=== PATIENT | male | born 1960 | race African-American/Black ===

== ENCOUNTER 2017-07-28 05:48 | Inpatient (IN) | payer OTHER ==
[2017-07-15 13:08] LABS: BASOPHILS % (AUTO) 1.4 % (0.0-2.0); EOSINOPHILS % (AUTO) 4.4 % (0.0-3.0); HEMATOCRIT 41.4 % (42.0-52.0); HEMOGLOBIN 13.9 G/DL (14.2-18.0); LYMPHOCYTES % (AUTO) 41.7 % (20.0-45.0); MEAN CORPUSCULAR VOLUME 84 FL (80-99); NEUTROPHILS % (AUTO) 44.4 % (45.0-75.0); PLATELET COUNT 306 K/UL (150-450); RED CELL DISTRIBUTION WIDTH 12.6 % (11.6-14.8); WHITE BLOOD COUNT 8.5 K/UL (4.8-10.8)
[2017-07-15 13:17] LABS: ALANINE AMINOTRANSFERASE 35 U/L (12-78); ALBUMIN 4.6 G/DL (3.4-5.0); ALBUMIN/GLOBULIN RATIO 1.2 (1.0-2.7); ALKALINE PHOSPHATASE 74 U/L (46-116); ANION GAP 7 mmol/L (5-15); ASPARTATE AMINO TRANSFERASE 29 U/L (15-37); BILIRUBIN,TOTAL 0.4 MG/DL (0.2-1.0); BLOOD UREA NITROGEN 10 mg/dL (7-18); CALCIUM 9.9 MG/DL (8.5-10.1); CARBON DIOXIDE 30 MMOL/L (21-32); CHLORIDE 103 MMOL/L (98-107); PHOSPHORUS 3.3 MG/DL (2.5-4.9); POTASSIUM 3.9 MMOL/L (3.5-5.1); SODIUM 140 MMOL/L (136-145)
--- NOTE | 2017-07-15 13:38 | Diagnostic Imaging Report ---
Indication: Dyspnea Comparison: None 2 views of the chest obtained. Findings: Cardiomediastinal silhouette and pulmonary vascularity are within normal limits for age. The diaphragmatic contour is smooth and costophrenic angles are sharp. No pleural effusions are identified. Vertebral endplate osteophytes noted throughout the thoracic spine. Impression: No acute disease Thoracic spondylosis
[2017-07-15 13:53] LABS: APPEARANCE,URINE CLEAR; BILIRUBIN, URINE NEGATIVE (NEGATIVE); COLOR,URINE PALE YELLOW; GLUCOSE, URINE (UA) NEGATIVE (NEGATIVE); KETONES,URINE NEGATIVE (NEGATIVE); LEUKOCYTE ESTERASE ,URINE NEGATIVE (NEGATIVE); NITRITE,URINE NEGATIVE (NEGATIVE); PH,URINE 6.5 (4.5-8.0); PROTEIN,URINE NEGATIVE (NEGATIVE); UROBILINOGEN,URINE NORMAL MG/DL (0.0-1.0)
[2017-07-28] VITALS (12 sets, daily range): BP systolic 115–142; BP diastolic 58–79
[~2017-07-28] VITALS: Ht 180.3 cm; Wt 133.1 kg
[2017-07-28] MEDS ORDERED: Metoclopramide 10mg/2ml Inj IVP PRN ×2 (06:15→15:00)
[2017-07-28] MEDS ORDERED: Acetaminophen (Non formulary) 100 ML IV ONE (06:15)
[2017-07-28] MEDS ORDERED: Labetalol 5mg/ml 20ml vial IV PRN ×2 (06:15→15:00)
[2017-07-28] MEDS ORDERED: Midazolam 2mg/2ml Inj IVP PRN ×2 (06:15→15:00)
[2017-07-28] MEDS ORDERED: HYDROcodone/Acetamin 7.5/325 tab ORAL PRN ×4 (06:15→17:00)
[2017-07-28] MEDS ORDERED: Norco 5mg/325mg tab ORAL PRN ×3 (06:15→17:00)
[2017-07-28] MEDS ORDERED: LR 1000ml 1,000 ML IVLG SCH (06:15)
[2017-07-28] MEDS ORDERED: DiphenhydrAMINE 50mg/ml Inj IVP PRN ×2 (06:15→15:00)
[2017-07-28] MEDS ORDERED: Atropine Inj 1mg/10ml Syr IV PRN (06:15)
[2017-07-28] MEDS ORDERED: fentaNYL 100 mcg/2 mL IV PRN ×3 (06:15→15:00)
[2017-07-28] MEDS ORDERED: LORazepam Inj 2mg/ml 1ml IV PRN ×2 (06:15→15:00)
[2017-07-28] MEDS ORDERED: Ketorolac 30mg Inj IV PRN ×4 (06:15→15:00)
[2017-07-28] MEDS ORDERED: oxyCODONE HCL/Acetaminophen 5/325mg ORAL PRN ×2 (06:15→15:00)
[2017-07-28] MEDS ORDERED: Zemuron 50mg/5ml Inj IV ONE (06:18)
[2017-07-28] MEDS ORDERED: Sodium Chloride 10ml vial INJ ONE (06:40)
[2017-07-28] MEDS ORDERED: Dexamethasone 4mg/ml vial ONE (06:40)
[2017-07-28] MEDS ORDERED: Lidocaine 1% Plain 30 ml INJ ONE ×5 (06:40→14:09)
[2017-07-28] MEDS ORDERED: LIPITOR20 MG ORAL (06:43)
[2017-07-28] MEDS ORDERED: ASPIR 8181 MG ORAL (06:43)
[2017-07-28] MEDS ORDERED: LISINOPRIL20 MG ORAL (06:43)
[2017-07-28] MEDS ORDERED: fentaNYL 100 mcg/2 mL IV ONE ×3 (06:53→14:19)
[2017-07-28] MEDS ORDERED: NAPROXEN250 M1 PO (06:54)
[2017-07-28] MEDS ORDERED: ceFAZolin sod 2 GM in D5W 110 ML IVP ONE (07:00)
[2017-07-28] MEDS ORDERED: Thrombin 5000 units TOPIC ONE ×3 (07:08→09:02)
[2017-07-28] MEDS ORDERED: Thrombin 5000 units spray kit TOPIC ONE (07:08)
[2017-07-28] MEDS ORDERED: Ropivacaine 5mg/ml Vial 30ml INJ ONE (07:09)
[2017-07-28] MEDS ORDERED: Gelfoam Absorbable 1gm powder pkt TOPIC ONE (07:09)
[2017-07-28] MEDS ORDERED: Lidocaine 1% 10mg/ml/Epi 0.005mg/ml 30ml vial INJ ONE (07:10)
[2017-07-28] MEDS ORDERED: Bacitracin 50000 Units Vial ONE ×2 (07:10→11:57)
--- NOTE | 2017-07-28 07:23 | Anethesia Preoperative Eval ---
Anesthesia Pre-op PMH/ROS General Date of Evaluation: July 28, 2017 Time of Evaluation: 08:09 Anesthesiologist: Kell ASA Score: ASA 3 Mallampati Score Class I : Soft palate, uvula, fauces, pillars visible Class II: Soft palate, uvula, fauces visible Class III: Soft palate, base of uvula visible Class IV: Only hard plate visible Mallampati Classification: Class III Surgeon: Anna Diagnosis: Back Pain Surgical Procedure: ALIF, PLIF L3-S1, Decompression Anesthesia History: none Family History: no anesthesia problems Allergies: Coded Allergies: No Known Allergies (Unverified , 07/27/17) Medications: see eMAR Past Medical History Cardiovascular: Reports: HTN, other - HL Neurologic/Psychiatric: Reports: depression/anxiety Endocrine: Reports: DM Hematology/Immune: Reports: anemia - Mild Other: obesity - BMI 41 PSxH Narrative: Cervical Spine SX Anesthesia Pre-op Phys. Exam Physician Exam Last Vital Signs Date Time Temp Pulse Resp B/P (MAP) Pulse Ox O2 Delivery O2 Flow Rate FiO2 07/28/17 07:14 98.4 78 20 126/68 99 Room Air 98.4 Constitutional: NAD Neurologic: CN 2-12 intact Cardiovascular: RRR Respiratory: CTA Gastrointestinal: S/NT/ND Airway Exam Mallampati Score: Class III MO: full ROM: limited Teeth: intact Anesthesia Pre-op A/P Risk Assessment & Plan Assessment: ASA 3 Plan: GA, BIS, GlideScope Go Status Change Before Surgery: No Pre-Antibiotics Dru Grams Ancef IV Given Within 1 Hr of Incision: Yes Time Given: 08:26 Yony Castorena MD July 28, 2017 07:23
--- NOTE | 2017-07-28 07:24 | Immediate Post-Op Evaluation ---
Immediate Post-Op Evalulation Immediate Post-Op Evalulation Procedure: ALIF, PLIF L3-S1, Decompression Date of Evaluation: July 28, 2017 Time of Evaluation: 17:24 IV Fluids: 2000 LR Blood Products: CELL saver 135cc Estimated Blood Loss: 400 Urinary Output: 200 Blood Pressure Systolic: 116 Blood Pressure Diastolic: 58 Pulse Rate: 89 Respiratory Rate: 16 O2 Sat by Pulse Oximetry: 100 Temperature (Fahrenheit): 97.9 Pain Score (1-10): 2 Nausea: No Vomiting: No Complications 0 Patient Status: awake, reacts, patent, extubated, none Hydration Status: adequate Dru Grams Ancef IV Given Within 1 Hr of Incision: Yes Time Given: 08:26 Yony Castorena MD July 28, 2017 07:24
[2017-07-28] MEDS ORDERED: LR 1000ml ONE (08:00)
[2017-07-28] MEDS ORDERED: NS Irrig 1000ml ONE (08:00)
[2017-07-28] MEDS ORDERED: Neostigmine 1mg/ml 10ml Inj ONE (08:00)
[2017-07-28] MEDS ORDERED: Sterile Water Irrig 1000ml IRRIG ONE (08:00)
[2017-07-28] MEDS ORDERED: Propofol 1,000mg/ 100ml btl IV ONE (08:00)
--- NOTE | 2017-07-28 08:16 | Pre-Procedure Note/Attestation ---
Pre-Procedure Note/Attestation Complete Prior to Procedure Procedure Narrative: L45S1 and post fusions, L3-s1 decompression Indications for Procedure Pre-Operative Diagnosis: discopathy and stenosis L3-s1 Attestation I attest that I discussed the nature of the procedure; its benefits; risks and complications; and alternatives (and the risks and benefits of such alternatives ), prior to the procedure, with the patient (or the patient's legal financial services sales representative). I attest that, if there was a reasonable possibility of needing a blood transfusion, the patient (or the patient's legal financial services sales representative) was given the [facility] standardized written summary, pursuant to the Porter Raul Blood Safety Act ([place] Health and Safety Code # 1645, as amended). I attest that I re-evaluated the patient just prior to the surgery and that there has been no change in the patient's H&P, except as documented below: GEORGINA LAFLEUR July 28, 2017 08:16
[2017-07-28] MEDS ORDERED: Heparin 5000 units/ml inj ONE (09:01)
--- NOTE | 2017-07-28 11:01 | Brief Operative Note ---
Immediate Post Operative Note Operative Note Pre-op Diagnosis: discopathy and stenosis L3-s1 Procedure: Anterior/posterior fusion L45S1 and L3-S1 decompression, L34 L Discectomy, and L45 dural repair Post-op Diagnosis: same + durotomy x 2 l45, and HNP with extrusion L l34 Post-op Diagnosis: same as pre-op plus Findings: consistent w/pre-op dx studies Surgeon: oral Assistant Gm Of Content & Delivery: celestino thurston Additional Surgeons: Buzz Combs-- vascular Anesthesiologist: Yony Barry Anesthesia: general Specimen: yes Complications: none Condition: stable Fluids: 2L, cell saver 130 Estimated Blood Loss: volume - 400 Drains: hemovac - suprafascial Implant(s) used?: Yes - 4wed alif, ant plate, mercury pedicle screws GEORGINA LAFLEUR July 28, 2017 11:01
[2017-07-28] MEDS ORDERED: Propofol 200mg/20ml IV ONE (12:25)
[2017-07-28] MEDS ORDERED: CEFAZOLIN 2 GM IV SCH (14:00)
[2017-07-28] MEDS ORDERED: Rate Change PCA 1 Each MISC PRN (14:30)
--- NOTE | 2017-07-28 14:59 | Diagnostic Imaging Report ---
Indication: Pain, intraoperative, bilateral lower extremity pain Technique: Intraoperative images Comparison: none Findings: Initial image demonstrates a surgical tool anterior to what is presumably the L5-S1 disc. Subsequent images demonstrate placement of disc spacers and anterior fusion hardware at L4-5 and L5-S1. Subsequent images document placement of posterior fusion hardware connecting L4, L5, and S1. Impression: Intraoperative imaging, as described
[2017-07-28] MEDS ORDERED: PCA Morphine 30mg/30ml IV PRN (15:00)
[2017-07-28] MEDS ORDERED: Vancomycin 1gm inj IVPB ONE (16:04)
[2017-07-28] MEDS ORDERED: Hydrogen Peroxide 473ml Bottle TOPIC ONE (16:16)
[2017-07-28] MEDS ORDERED: acetaZOLAMIDE 500mg Inj ONE (16:23)
[2017-07-28] MEDS ORDERED: Glycopyrrolate 0.2mg/ml 1ml Vial ONE (16:27)
[2017-07-28] MEDS: PCA Morphine 30mg/30ml IV PRN (18:30)
--- NOTE | 2017-07-28 19:45 | Operative Note - Dictated ---
DATE OF OPERATION: 07/28/2017 SURGEON: Renan Castillo M.D. GRADING MACHINE FEEDER: Angel Stanford PA-C. VASCULAR ACCESS SURGEON: Hubert Combs M.D. ANESTHESIA: Yony Castorena M.D. ANESTHESIA TYPE: General endotracheal anesthesia. PREOPERATIVE DIAGNOSES: 1. Discopathy L4-L5 and L5-S1. 2. Spondylolisthesis L4-L5. OPERATION PERFORMED: 1. Wide and radical discectomy through an anterior retroperitoneal approach. 2. Placement of interbody fusion device (structural cage, 4 WEB). 3. Use of Signafuse bone graft allograft. 4. Use of fluoroscopy. 5. Neurodiagnostic monitoring. ESTIMATED BLOOD LOSS: 150 mL. COMPLICATIONS: Small vascular punctate hole requiring primary repair, single stitch. RISK NOTE: The patient was explained in detail risks and benefits of surgery to include, but not be limited to those of bleeding, infection, damage to nerves, vessels, or tendons, anesthetic risk, allergic reaction, aspiration, and possibly . The patient understood and wished to proceed. INDICATIONS: The patient is a very pleasant gentleman with advanced discogenic collapse at L5-S1, spondylolisthesis L4-L5, and severe spinal stenosis L3 through S1. Anterior-posterior surgery was recommended due to his myelopathy and spasticity. The patient elected to proceed. OPERATIVE PROCEDURE IN DETAIL: The patient was taken to the operative suite. After general endotracheal anesthesia was obtained, Merritt catheter was placed. He was positioned supine on the radiolucent table. The abdomen was prepped and draped in the usual sterile fashion. Anterior retroperitoneal approach was performed by Dr. Hubert Combs and will be dictated separately. At this point, the retractors were at L5-S1. The wide and radical diskectomy was performed using standard technique by incising the disc anteriorly using endplate strippers to separate the cartilaginous from bony end plate. Interbody distractors were put in place. Curettes were then used both straight and angled curettes to separate the cartilagenous endplate from the bony endplates. Once the diskectomy was complete, a trial implant was put into place and a 10 mm 4 WEB implant was chosen and noted to have a perfect and ideal fit. The 4 WEB device was then packed centrally with Signafuse and inserted within the disk space. An anterior plate was applied at the L5-S1 level at the buttress to prevent dislodgement of the graft. At this point, the retractors were mobilized and attention was turned to the L4-L5 level. In an identical fashion, wide and radical diskectomy was performed. Anterior osteophytectomy was performed, which allowed for more readily accessible placement of the 4 WEB cage. At this level, a 12 mm cage was chosen and noted to have excellent fit. A small Fang plate was then applied. Once stable fixation was achieved, additional Signafuse bone graft material was applied as an anterior sentinel at L4-L5 and L5-S1. At this point, the retractors were removed. Once the retractor was removed on the right side, a punctate hole in the vena cava/common iliac vein was identified and this was promptly repaired primarily by Dr. Combs without complications. This will be dictated separately. At this point, copious irrigation was performed. The closure will then be dictated separately per Dr. Combs. Sponge and needle counts were correct. Renan Castillo M.D. DR: KING JOB#: [id number] CC: SANTY
--- NOTE | 2017-07-28 19:45 | Operative Note - Dictated ---
DATE OF OPERATION: 07/28/2017 DICTATING PHYSICIAN: Hubert Combs M.D. VASCULAR SURGEON: Hubert Combs M.D. SPINE SURGEON: Renan Castillo M.D. PREOPERATIVE DIAGNOSIS: Degenerative disc disease. POSTOPERATIVE DIAGNOSIS: Degenerative disc disease. PROCEDURES PERFORMED: 1. Anterior retroperitoneal exposure, L4-L5. 2. Anterior retroperitoneal exposure, L5-S1 vertebral interspace. 3. Primary repair of left common iliac vein. INDICATIONS: The patient is a very pleasant gentleman who is seen in my office prior to surgery. He has been scheduled at L4-5 and L5-S1. He has no prior anterior abdominal surgery. No history of deep venous thrombosis or bleeding complications was described. He has been made aware of the risks of vascular surgery, the possibility of vascular angioplasty, blood transfusion, deep venous thrombosis were discussed with him prior to surgery. DESCRIPTION OF FINDINGS: A vertical midline incision was used. A left retroperitoneal approach was used. There was no peritoneal or ureteral violation. L5-S1 was obtained below the iliac bifurcation with retraction of left common iliac artery and vein superior and laterally, and confirmed using fluoroscopy and L4-L5 was obtained above. The iliac bifurcation with retraction of left common iliac artery and vein towards the patient's right arm. On completion of the anterior fusion of L4-L5, there was a small venotomy noted on the anterior and lateral aspect of left common iliac vein. It was easily repaired primarily using a [id number] 4-0 Prolene suture. Blood loss during the entire anterior portion the case was 100 mL. complications were none and the patient was hemodynamically stable throughout the case. There was a transient decrease in neurologic monitoring in the left leg during retraction at L4-L5. Once the retractor released at the completion of the case, pulse oximetry and left foot were normal and neurologic monitoring returned to baseline. DESCRIPTION OF PROCEDURE: The patient was taken to operative room. General anesthesia was used. Antibiotics were given. The patient's abdomen was prepped and draped. Appropriate time-out procedure was taken. A low vertical midline incision was made. Anterior fascia was incised longitudinally in the midline. A plane was identified posterior to the left rectus abdominis and developed posterolaterally towards the patient's left. The retroperitoneal space was bluntly entered below the arcuate line. The peritoneum and ureter were mobilized towards the patient's right exposing the left common iliac artery and vein. Initially, dissection was carried on the undersurface of the left common vein. The middle sacral artery and vein were ligated using bipolar electrocautery and divided and this allowed us to retract the left common iliac artery and vein superiorly and laterally exposing anterior surface of the L5-S1. Fluoroscopy was used to confirm the appropriate level and instrumentation was performed at L5-S1 and dictated separately. Retractor then repositioned above the iliac bifurcation. Dissection was carried lateral to the left common iliac artery and vein. Overlying lymphatics were ligated with vascular clips. The iliolumbar vein was identified and encircled using a 2-0 silk tie and triply ligated proximally distally with vascular clips. There was a large L4 segmental vein that was identified was doubly ligated with vascular clips and divided, and the corresponding segmental artery was ligated with vascular clips and divided. This allowed us to then retract the left common iliac artery and vein towards the patient's right exposing the anterior surface of L4-L5. The Omni retractor was set in place. Fluoroscopy was once again used to confirm the appropriate level, and then instrumentation was performed at L4-L5 and dictated separately. Upon completion, retractor was gently removed. There was a small venotomy noted on the anterior surface of the mid left common iliac vein and it was easily exposed. It was repaired using a [id number] Prolene suture. The diameter of the iliac vein in this location was easily 16 to 20 mm in size and there was no narrowing or the iliac vein after repair. There was also normal femoral pedal pulses on completion. At this time, the anterior fascia was then closed using #1 PDS in a running fashion. Skin and subcutaneous tissue were closed with 3-0 Vicryl and 4-0 Monocryl running subcuticular closure technique. Estimated blood loss is 100 mL. Complication, none. Hubert Combs M.D. DR: JAVIER JOB#: [id number] CC:
[2017-07-28] MEDS: PCA shift volume MISC SCH (20:00)
[2017-07-28] MEDS ORDERED: PCA Education Pamphlet MISC ONE (20:00)
[2017-07-28] MEDS: D5 1/2NS 1,000 ML IV SCH (20:55)
[2017-07-28] MEDS ORDERED: Naloxone 0.4mg/ml Inj IVP PRN (21:00)
[2017-07-28] MEDS ORDERED: Milk of Magnesia 30ml Ud ORAL PRN (21:00)
[2017-07-28] MEDS: ceFAZolin sod 1 GM in D5W 55 ML IV SCH (22:27)
[2017-07-28] MEDS: Docusate 100mg cap ORAL SCH (22:28)
--- NOTE | 2017-07-28 23:15 | Operative Note - Dictated ---
DATE OF OPERATION: 07/28/2017 SURGEON: Renan Castillo M.D. PREOPERATIVE DIAGNOSES: 1. Spinal stenosis L3 through S1. 2. Status post prior anterior fusion L4-L5 and L5-S1. 3. Spondylosis and advanced discopathy at L5-S1 and spondylolisthesis and discopathy at L4-L5. POSTOPERATIVE DIAGNOSES: 1. Spinal stenosis L3 through S1. 2. Status post prior anterior fusion L4-L5 and L5-S1. 3. Spondylosis and advanced discopathy at L5-S1 and spondylolisthesis and discopathy at L4-L5. 4. Extruded disk fragment, left side at L3-L4. 5. Intraoperative durotomy x2 at L4-L5. OPERATION PERFORMED: 1. Posterior spinal fusion L4 through S1. 2. Midline central decompression L3, L4, L5, and superior portion of S1. 3. Diskectomy, left side L3-L4. 4. Primary repair of dural tear x2 at L4-L5 both midline dorsally as well as the left side along the lateral recess. 5. Neurodiagnostic monitoring. 6. Use of fluoroscopy. 7. Use of operating microscope. 8. Pedicle screw stimulation. 9. Application of local autograft bone. ESTIMATED BLOOD LOSS: 350 mL. INDICATIONS: The patient is a very pleasant gentleman with severe spinal stenosis, who required anterior fusion at L4-L5 and L5-S1, decompression posteriorly L3 through S1, as well as posterior augmentation of fusion at L5-S1 and L4-L5. He had severe stenosis maximally at L4-L5 to a lesser extent L3-L4. Incidentally noted was a disc extrusion at left side L3-L4 requiring diskectomy and neurolysis. RISK NOTE: The patient was explained in detail risks and benefits of surgery to include, but not be limited to those of bleeding, infection, damage to nerves, vessels, and tendons, anesthetic risk, allergic reaction, aspiration, and possibly . The patient understood and wished to proceed. OPERATIVE PROCEDURE IN DETAIL: Under benefits of general anesthesia, the patient was turned prone onto a Prem frame. Back was prepped and draped in usual sterile fashion. After bony prominences were all padded, fluoroscope was brought in place. The grafts at the L4-5 and L5-S1 were noted to be in stable position and had not moved from the prior position. Once the back was prepped and draped in the usual sterile fashion, a midline incision was carried out from L3 through S1. The procedure was complicated due to the patient's large body habitus. A midline incision was carried down and subperiosteal dissection was carried out from L3 through S1 care being taken to avoid injury to the L3-L4 facet joint. At this point, under fluoroscopic guidance, the L4-L5 and L5-S1 levels were identified. Dissection was carried out laterally to the area of the transverse processes and then using both anatomic and fluoroscopic landmarks, pedicle screw placement was performed using standard technique by drilling the outer cortex and applying a pedicle finder then ball tip probe and ultimately a tap and application of the appropriate sized screws bilaterally at L4, L5, and S1. Pedicle screw stimulation confirmed good positioning at L4 and L5 at 20 milliamps or above and at S1 on the right side at 15 and on the left side at 12 milliamps. Fluoroscopic imaging looked ideal. Once pedicle screw placement was performed and tested and fluoroscopic image verified, the appropriate sized rods were then measured and applied. They were then torqued to the appropriate level. Operating microscope was then brought into place and a complete central laminectomy was then performed at L5, L4, and L3. Please note that the L3 decompression was partial and did not require complete L3 resection. Superior portion of S1 was also resected. This was performed using standard technique by removing the spinous processes, thinning out the lamina, and using curved curette as well as Kerrison punches to decompress at L3-L4, L4-L5, and L5-S1 levels. Ligamentum flavum was removed in a piecemeal fashion at multiple levels. Once the decompression was achieved, the operating microscope was used to explore the lateral recesses on the left side at L3-L4, a moderately large-sized disc fragment was noted along the lateral recess under the nerve root, which was meticulously removed using a rhoton dissector as well as nerve hook. Once the disk fragment was removed, copious irrigation was performed and FloSeal was applied. At this point, the lateral recesses were further decompressed. There was noted to be extensive ligamentum hypertrophy at the L4-L5 level with marked adhesions. There was a 1 mm punctate hole at the midline at L4-L5 as well as along the lateral recess left side at L4-L5. Once these two areas of CSF leakage were identified, it was repaired primarily with 6-0 Prolene BV-1 suture. Midline, there was watertight closure. The left lateral recess was watertight as well, however, there was still some leakage of CSF through the needle hole. Copious irrigation was performed. The superior portion of the S1 lamina was also resected. All neural foramen were probed and noted to be patent. At this point, copious irrigation was performed. Meticulous hemostasis was achieved with hydrogen peroxide soaked sponge. Please note that due to the dural tear, a drain was elected not to be placed subfascially. Once hemostasis was achieved, a small piece of DuraGen was cut and applied to the areas of dural repair. Tisseel was then used to place along the L3 through S1 laminectomy defects. Once this had fully set, the patient then received 1 gram of vancomycin below the fascia. Fascia was repaired using #1 Vicryl. The suprafascial medium-sized Hemovac drain was applied, subcutaneous closure using 2-0 Vicryl, and finally Dermabond was applied. Sterile dressing was applied. The patient was turned onto his back, awakened, extubated, and transferred to recovery room in stable condition. Renan Castillo M.D. DR: KING JOB#: [id number] CC: SANTY
[2017-07-29 00:32] VITALS: BP 108/67
[2017-07-29 04:00] VITALS: BP 123/65
[2017-07-29 04:36] LABS: BASOPHILS % (AUTO) 0.7 % (0.0-2.0); EOSINOPHILS % (AUTO) 0.1 % (0.0-3.0); HEMATOCRIT 35.5 % (42.0-52.0); HEMOGLOBIN 11.6 G/DL (14.2-18.0); LYMPHOCYTES % (AUTO) 13.5 % (20.0-45.0); MEAN CORPUSCULAR VOLUME 85 FL (80-99); MONOCYTES % (AUTO) 13.7 % (1.0-10.0); PLATELET COUNT 257 K/UL (150-450); RED BLOOD COUNT 4.16 M/UL (4.70-6.10); RED CELL DISTRIBUTION WIDTH 12.8 % (11.6-14.8); WHITE BLOOD COUNT 14.9 K/UL (4.8-10.8)
[2017-07-29] MEDS: ceFAZolin sod 1 GM in D5W 55 ML IV SCH ×2 (05:18→14:03)
[2017-07-29] MEDS: D5 1/2NS 1,000 ML IV SCH ×2 (05:19→16:24)
[2017-07-29] MEDS: PCA shift volume MISC SCH ×2 (07:07→19:22)
[2017-07-29 08:00] VITALS: BP 100/53
[2017-07-29] MEDS: PCA Morphine 30mg/30ml IV PRN (09:01)
[2017-07-29] MEDS: Docusate 100mg cap ORAL SCH ×2 (09:02→18:06)
[2017-07-29] MEDS: acetaZOLAMIDE 500mg Inj IVP SCH (09:03)
--- NOTE | 2017-07-29 11:12 | 48 Hour Post Anesthesia Eval ---
Post Anesthesia Evaluation Procedure: ALIF, PLIF L3-S1, Decompression Date of Evaluation: July 29, 2017 Time of Evaluation: 06:30 Blood Pressure Systolic: 123 0: 65 Pulse Rate: 100 Respiratory Rate: 19 Temperature (Fahrenheit): 98.8 Airway: patent Nausea: No Vomiting: No Pain Intensity: 0 Hydration Status: adequate Cardiopulmonary Status: at baseline Mental Status/LOC: patient returned to baseline Post-Anesthesia Complications: 0 Follow-up care needed: N/A - further care as per primary team YARA ROSENBAUM M.D. July 29, 2017 11:12
[2017-07-29 12:00] VITALS: BP 108/56
--- NOTE | 2017-07-29 12:54 | Consultation ---
History of Present Illness General Date patient seen: July 29, 2017 Present Illness HPI 56 year old male with hx of HTN, hypercholesterolemia, Prediabetic with CC of spinal stenosis, admitted for ALIF, PLIF L3-S1, Decompression. Post operatively pt is admitted to surgical floor for post op care. Allergies: Coded Allergies: No Known Allergies (Unverified , 07/27/17) Medication History Scheduled Aspirin* (Aspir 81*), 81 MG ORAL DAILY, (Reported) Atorvastatin Calcium* (Lipitor*), 20 MG ORAL BEDTIME, (Reported) Lisinopril (Lisinopril*), 20 MG ORAL DAILY, (Reported) Naproxen (Naproxen), 500 MG PO DA, (Reported) Patient History Healthcare decision maker PATRICIA- Resuscitation status Full Code Advanced Directive on File Yes Past Medical/Surgical History Past Medical/Surgical History: (1) HTN (hypertension) Review of Systems All Other Systems: negative except mentioned in HPI Physical Exam General Appearance: WD/WN, no apparent distress Lines, tubes and drains: peripheral HEENT: normocephalic, atraumatic, PERRL Neck: non-tender, normal alignment Respiratory/Chest: chest wall non-tender, lungs clear Breasts: no masses Cardiovascular/Chest: normal rate Abdomen: normal bowel sounds Genitourinary/Rectal: normal genital exam Last 24 Hour Vital Signs Date Time Temp Pulse Resp B/P (MAP) Pulse Ox O2 Delivery O2 Flow Rate FiO2 07/29/17 12:00 98.0 88 20 108/56 100 Room Air 98.0 07/29/17 12:00 20 07/29/17 11:12 209.8 100 19 07/29/17 10:58 98.8 07/29/17 09:59 98.7 07/29/17 09:31 98.7 07/29/17 09:01 20 07/29/17 09:01 98.7 07/29/17 09:00 20 07/29/17 08:32 98.7 07/29/17 08:00 20 07/29/17 08:00 98.7 91 20 100/53 98 Room Air 98.7 07/29/17 07:33 98.8 07/29/17 04:19 19 07/29/17 04:00 98.8 100 19 123/65 98 Room Air 98.8 07/29/17 00:32 99.0 84 18 108/67 99 Room Air 99.0 07/29/17 00:02 18 07/28/17 21:00 19 07/28/17 20:54 97.7 88 18 128/79 99 97.7 07/28/17 20:00 19 07/28/17 19:30 20 07/28/17 19:15 20 07/28/17 19:00 20 07/28/17 18:58 98.0 80 16 115/65 100 Nasal Cannula 3.0 98.0 07/28/17 18:45 20 07/28/17 18:42 80 16 142/75 100 Nasal Cannula 3.0 07/28/17 18:30 80 16 122/60 100 Nasal Cannula 3.0 07/28/17 18:30 20 07/28/17 18:15 74 16 117/59 100 Nasal Cannula 3.0 07/28/17 18:00 75 16 128/65 100 Nasal Cannula 3.0 07/28/17 17:50 75 16 128/65 100 Nasal Cannula 3.0 07/28/17 17:30 75 16 131/69 100 Nasal Cannula 3.0 07/28/17 17:23 83 16 126/62 100 Nasal Cannula 3.0 07/28/17 17:18 88 16 135/72 100 Simple Mask 8.0 07/28/17 17:14 208.2 89 16 100 07/28/17 17:13 97.9 90 16 116/58 100 Simple Mask 8.0 97.9 Intake and Output 07/28/17 07/29/17 19:00 07:00 Intake Total 2635 ml 800 ml Output Total 750 ml 1800 ml Balance 1885 ml -1000 ml Intake IV Total 2500 ml 800 ml Other 135 ml Output Urine Total 550 ml 1800 ml Drainage Total 0 ml Estimated Blood Loss 200 ml Laboratory Tests Test 07/29/17 04:20 White Blood Count 14.9 K/UL (4.8-10.8) H Red Blood Count 4.16 M/UL (4.70-6.10) L Hemoglobin 11.6 G/DL (14.2-18.0) L Hematocrit 35.5 % (42.0-52.0) L Mean Corpuscular Volume 85 FL (80-99) Mean Corpuscular Hemoglobin 27.9 PG (27.0-31.0) Mean Corpuscular Hemoglobin Concent 32.7 G/DL (32.0-36.0) Red Cell Distribution Width 12.8 % (11.6-14.8) Platelet Count 257 K/UL (150-450) Mean Platelet Volume 6.7 FL (6.5-10.1) Neutrophils (%) (Auto) 72.0 % (45.0-75.0) Lymphocytes (%) (Auto) 13.5 % (20.0-45.0) L Monocytes (%) (Auto) 13.7 % (1.0-10.0) H Eosinophils (%) (Auto) 0.1 % (0.0-3.0) Basophils (%) (Auto) 0.7 % (0.0-2.0) Height (Feet): 5 Height (Inches): 11.00 Weight (Pounds): 293 Medications Current Medications Medications (Trade) Dose Ordered Sig/Jessica Route PRN Reason Start Time Stop Time Status Last Admin Dose Admin Acetaminophen (Tylenol) 650 mg Q4H PRN ORAL headache or temp>101 07/28/17 21:00 08/27/17 20:59 07/29/17 07:33 Acetaminophen/ Butalbital/ Caffeine (Fioricet) 1 tab Q8H PRN ORAL for headache 07/29/17 09:45 08/28/17 09:44 Acetazolamide (Diamox 500mg Inj) 500 mg DAILY IVP 07/29/17 09:00 07/30/17 16:59 07/29/17 09:03 Cefazolin Sodium 1 gm/Dextrose 55 ml @ 110 mls/hr EVERY 8 HOURS IV 07/28/17 22:00 07/29/17 14:29 07/29/17 05:18 Dextrose/Sodium Chloride 1,000 ml @ 100 mls/hr Q10H IV 07/28/17 21:00 08/27/17 20:59 07/29/17 05:19 Docusate Sodium (Colace) 100 mg TWICE A DAY ORAL 07/28/17 22:00 08/27/17 21:59 07/29/17 09:02 Magnesium Hydroxide (Mom) 30 ml QIDPRN PRN ORAL Constipation 07/28/17 21:00 08/27/17 20:59 Miscellaneous Medication (LOSS PREVENTION SPECIALIST Rate Change) 1 ea PRN MISC rate change 07/28/17 14:30 07/30/17 14:29 Miscellaneous Medication (LOSS PREVENTION SPECIALIST shift volume) 1 ea Q12HR@0700,1900 MISC 07/28/17 19:00 07/30/17 18:59 07/29/17 07:07 Morphine Sulfate 30 ml @ 0 mls/hr LOSS PREVENTION SPECIALIST Protocol PRN IV For Pain 07/28/17 18:30 07/30/17 14:59 07/29/17 09:01 Naloxone HCl (Narcan) 0.1 mg PRN PRN IVP RR<12/min, pt unarousable 07/28/17 21:00 08/27/17 20:59 Ondansetron HCl (Zofran) 4 mg Q6H PRN IVP Nausea & Vomiting 07/28/17 21:00 08/27/17 20:59 07/29/17 11:15 Prochlorperazine (Compazine) 10 mg Q6H PRN IVP Nausea & Vomiting 07/28/17 21:00 08/27/17 20:59 Assessment/Plan Problem List: (1) HTN (hypertension) ICD Codes: I10 - Essential (primary) hypertension SNOMED: 64596760 (2) Spinal stenosis of lumbar region ICD Codes: M48.061 - Spinal stenosis, lumbar region without neurogenic claudication SNOMED: 40715859 Assessment/Plan resume antihypertensive meds pain management monitor BP Mariah Julio MD July 29, 2017 12:54
[2017-07-29] MEDS ORDERED: LORazepam 0.5mg tab ORAL ONE (14:29)
[2017-07-29] MEDS ORDERED: TransDerm Scop 1mg/72HR Patch TDERMAL SCH (14:30)
[2017-07-29] MEDS ORDERED: Chloraseptic Spray 20mL Bottle ORAL ONE (14:38)
[2017-07-29] MEDS ORDERED: LORazepam 0.5mg tab ORAL SCH ×3 (15:00→21:00)
[2017-07-29] MEDS ORDERED: Chloraseptic Spray 20mL Bottle ORAL PRN ×2 (15:00)
[2017-07-29 16:00] VITALS: BP 124/70
--- NOTE | 2017-07-29 17:54 | Orthopedic Spine Progress Note ---
Ortho Spine - Progress Note Subjective Symptoms: c/o post-op back pain, improved - as compared to pre-op, other - itching Objective Vital Signs: Last 24 Hour Vital Signs Date Time Temp Pulse Resp B/P (MAP) Pulse Ox O2 Delivery O2 Flow Rate FiO2 07/29/17 16:00 20 07/29/17 16:00 98.8 91 20 124/70 91 Room Air 98.8 07/29/17 15:06 98.0 07/29/17 14:07 98.0 07/29/17 12:00 98.0 88 20 108/56 100 Room Air 98.0 07/29/17 12:00 20 07/29/17 11:12 209.8 100 19 07/29/17 10:58 98.8 07/29/17 09:59 98.7 07/29/17 09:31 98.7 07/29/17 09:01 20 07/29/17 09:01 98.7 07/29/17 09:00 20 07/29/17 08:32 98.7 07/29/17 08:00 20 07/29/17 08:00 98.7 91 20 100/53 98 Room Air 98.7 07/29/17 07:33 98.8 07/29/17 04:19 19 07/29/17 04:00 98.8 100 19 123/65 98 Room Air 98.8 07/29/17 00:32 99.0 84 18 108/67 99 Room Air 99.0 07/29/17 00:02 18 07/28/17 21:00 19 07/28/17 20:54 97.7 88 18 128/79 99 97.7 07/28/17 20:00 19 07/28/17 19:30 20 07/28/17 19:15 20 07/28/17 19:00 20 07/28/17 18:58 98.0 80 16 115/65 100 Nasal Cannula 3.0 98.0 07/28/17 18:45 20 07/28/17 18:42 80 16 142/75 100 Nasal Cannula 3.0 07/28/17 18:30 80 16 122/60 100 Nasal Cannula 3.0 07/28/17 18:30 20 07/28/17 18:15 74 16 117/59 100 Nasal Cannula 3.0 07/28/17 18:00 75 16 128/65 100 Nasal Cannula 3.0 I&O: Intake and Output 07/28/17 07/29/17 19:00 07:00 Intake Total 2635 ml 800 ml Output Total 750 ml 1800 ml Balance 1885 ml -1000 ml Intake IV Total 2500 ml 800 ml Other 135 ml Output Urine Total 550 ml 1800 ml Drainage Total 0 ml Estimated Blood Loss 200 ml Wound: clean, intact Drains: hemovac Neuro Status: stable Assessment Post-op Diagnosis: same + durotomy x 2 l45, and HNP with extrusion L l34 Procedure Performed: Anterior/posterior fusion L45S1 and L3-S1 decompression, L34 L Discectomy, and L45 dural repair Plan Plan: d/c drain, other - benadryl Additional Comments: bed rest x 2 more days GEORGINA LAFLEUR July 29, 2017 17:54
--- NOTE | 2017-07-29 18:30 | Consultation ---
DATE OF CONSULTATION: 07/29/2017 CONSULTING PHYSICIAN: Agus Martino M.D. REFERRING PHYSICIAN: Renan Castillo M.D. REASON FOR CONSULTATION: Acute pain consult. HISTORY OF PRESENT ILLNESS: Thank you kindly for consulting me to evaluate and render an opinion as to how to proceed in the management of the patient's acute postoperative lumbar spine pain after extensive lumbar spine fusion surgery with instrumentation. The patient is a pleasant 56-year-old obese gentleman, who injured his lumbar spine in a work-related injury. He underwent extensive lumbar spine surgery yesterday evening and you consulted me, Dr. Castillo, to help this patient's postoperative pain control. I saw the patient at the bedside. I performed a detailed history and physical examination. I reviewed the medical record in detail. I discussed the case with the hospital pharmacist along with the charge nurse, RNCrissy. I saw the patient at the bedside with his . I spent over 75 minutes in consultation with an additional 30 minutes in medical record review. I reviewed multiple records from the patient's medical chart including utilization review and [facility] authorizing multi-level lumbar spine fusion surgery as certified. Further record review include preoperative history and physical by Dr. Sethi along with diagnostic testing of laboratory studies, 12-lead EKG, and chest x-ray in July 2017 and the record reviewed with multiple records from yesterday's date of surgery at [facility] on 07/28/2017 including consent for surgical treatment, consent for anesthesia, consent for blood products, medication administration record, medication reconciliation order form, PACU record, PACU orders, anesthesia record, pre and post anesthesia evaluation record, postoperative spine surgical orders, postoperative surgery report by Dr. Castillo, anesthesia record, pre and post anesthesia evaluation record, HEAD OF MARKETING ADOMETRY order sheet, HEAD OF MARKETING ADOMETRY analgesia flow sheet, implant log, guidelines for prophylactic antibiotics, and guidelines for DVT prophylaxis. PAST MEDICAL HISTORY: 1. Acute postoperative lumbar spine pain, status post multiple level lumbar spine fusion surgery with instrumentation by Dr. Renan Castillo in July 2017. 2. Work-related injury. 3. Obesity. 4. Hypertension. 5. PONV, postoperative nausea and vomiting. 6. Hyperlipidemia. PAST SURGICAL HISTORY: Anterior cervical spine surgery and posterior cervical spine surgery over 15 years ago. MEDICATIONS AT HOME: Aspirin, Lipitor, lisinopril, and NSAIDs. ALLERGIES: Hydrocodone causes nausea. FAMILY HISTORY: Hypertension, diabetes, and kidney cancer. SOCIAL HISTORY: The patient lives at home in [place] with his . He denies smoking and does drink 1 to 2 shots of Tequila 2 or 3 times per week. REVIEW OF SYSTEMS: Per Dr. Sethi. PHYSICAL EXAMINATION: GENERAL: Age 56, height 5 feet 11 inches, weight 285 pounds, and body mass index 41. VITAL SIGNS: Shows pain level 6/10 on the visual analog pain scale. Afebrile, pulse 88, respirations 20, blood pressure 108/56, and oxygen saturation 100%. HEENT: Normocephalic and atraumatic. CHEST: Barrel chested. Bibasilar crackles likely secondary to postoperative atelectasis. CARDIOPULMONARY: Detailed cardiopulmonary exam per Dr. Sethi. ABDOMEN: Obese. Positive bowel sounds. Tender by incision area. Distended, but no rebound or guarding. BACK: Lumbar spine shows significant pain with log rolling. Moving all extremities x4. Merritt catheter in place. DIAGNOSTIC DATA: Diagnostic testing from 07/29/2017 shows white count 15, hematocrit 36, and platelets 270,000. Sodium 140, potassium 3.9, chloride 103, bicarb 30, BUN 10, creatinine 1.0, and calcium 9.9. Phosphorus 3.3 and magnesium 1.9. Total bilirubin 0.4. AST 29, ALT 35, and alkaline phosphatase 74. Total protein 8.4. Albumin 4.6. IMPRESSION: 1. Acute postoperative lumbar spine pain, status post multiple level lumbar spine fusion surgery with instrumentation by Dr. Renan Castillo in July 2017. 2. Work-related injury. 3. Obesity. 4. Hypertension. 5. PONV, postoperative nausea and vomiting. 6. Hyperlipidemia. TREATMENT AND RECOMMENDATIONS: I started the patient on a morphine HEAD OF MARKETING ADOMETRY with a 1 mg demand dose at 10-minute lockout and 20 mg 4-hour limit. Additionally, I have added a breakthrough rescue dose of morphine 4 mg intramuscularly every 3 hours p.r.n. for severe breakthrough pain. The patient states that he has tolerated oxycodone and Percocet in the past after his previous neck surgery, so I have ordered oxycodone instant release 10 mg orally every 3 hours p.r.n. for moderate pain. The patient does complain of significant nausea. He has received multiple doses of Zofran without elimination of his nausea symptoms. I have asked the nurse to dose the patient with intramuscular Phenergan 12.5 mg every 8 hours, which I will also dose every 8 hours. The patient denies glaucoma symptoms, so I will also add a scopolamine patch. The patient does state that Percocet do seem to cause nausea. Because the patient remains NPO except for medications due to his ALIF procedure, I would recommend to try to avoid the oxycodone until he is able to tolerate food. If the patient does have any sore throat, I have ordered Chloraseptic spray to the bedside. The patient does drink alcohol socially with 1 to 2 shots of Tequila 2 or 3 times per week. I will place him on q.12 hours dosing of oral Ativan 0.5 mg around the clock. This dosing will be to help, which is required stay on bed rest protocol for the next 48 hours. There was an intraoperative incidental dural leak. The patient does not have any headache symptoms. He also is caffeine-dependent as he drinks coffee every morning. I have started him on Fioricet one tablet orally every 8 hours p.r.n. for headache symptoms. I did encourage him to resume caffeinated coffee and other caffeinated drinks once his diet is advanced. We will await until there is mandaeism of bowel function evidenced by positive flatus before advancing his diet. I will defer DVT prophylaxis to the surgeon. Dr. Castillo will permit incentive spirometer usage whenever he feels appropriate. The patient is on Diamox acetazolamide injections to help with his CSF leak repair. As the patient does not use muscle relaxants routinely, I would avoid this class of agents for now. While he is already on scheduled Ativan, I have provided a prescription for 75 tablets of Percocet 10/325 tablets to drop at a local pharmacy for outpatient dispensing. Regarding the patient's discharge planning, we will see how the patient responds to physical therapy once he begins to trial with ambulation in 48 hours. Rehabilitation placement has been suggested although the patient is preferring to return home to [place]. The patient does live with multiple pets/animals. I did caution the patient and his to keep the animals away from his wounds and certainly not to sleep with any cats and dogs, which may increase the risk for wound infection. Agus Martino M.D. DR: REYMUNDO JOB#: [id number] CC:
[2017-07-29 20:00] VITALS: BP 137/58
[2017-07-29] MEDS ORDERED: D5 1/2NS 1000ml IV ONE (20:34)
[2017-07-29] MEDS ORDERED: Tubing IV Secondary IV ONE (20:34)
[2017-07-29] MEDS: Atorvastatin 20mg tab ORAL SCH (20:57)
[2017-07-29] MEDS: oxyCODONE 5mg IR tab ORAL PRN (20:58)
[2017-07-30] VITALS: BP 123/59
[2017-07-30] MEDS: PCA Morphine 30mg/30ml IV PRN
[2017-07-30] MEDS: D5 1/2NS 1,000 ML IV SCH ×6 (02:40→22:51)
[2017-07-30 04:00] VITALS: BP 126/63
[2017-07-30] MEDS: oxyCODONE 5mg IR tab ORAL PRN (04:06)
[2017-07-30] MEDS: Morphine Sulfate 4mg/ml Inj IM PRN (05:32)
[2017-07-30] MEDS: PCA shift volume MISC SCH (07:06)
[2017-07-30 08:00] VITALS: BP 109/50
--- NOTE | 2017-07-30 08:33 | Orthopedic Spine Progress Note ---
Ortho Spine - Progress Note Subjective Symptoms: c/o post-op back pain, improved - as compared to pre-op, other - itchis a little btter Objective Vital Signs: Last 24 Hour Vital Signs Date Time Temp Pulse Resp B/P (MAP) Pulse Ox O2 Delivery O2 Flow Rate FiO2 07/30/17 08:00 18 07/30/17 08:00 98.6 93 19 109/50 99 98.6 07/30/17 04:00 18 07/30/17 04:00 97.7 100 18 126/63 100 Nasal Cannula 3.0 97.7 07/30/17 00:00 19 07/30/17 00:00 19 07/30/17 00:00 98.6 99 18 123/59 100 Nasal Cannula 3.0 98.6 07/29/17 20:00 98.6 88 18 137/58 99 Nasal Cannula 3.0 98.6 07/29/17 20:00 18 07/29/17 16:00 20 07/29/17 16:00 98.8 91 20 124/70 91 Room Air 98.8 07/29/17 15:06 98.0 07/29/17 14:07 98.0 07/29/17 12:00 98.0 88 20 108/56 100 Room Air 98.0 07/29/17 12:00 20 07/29/17 11:12 209.8 100 19 07/29/17 10:58 98.8 07/29/17 09:59 98.7 07/29/17 09:31 98.7 07/29/17 09:01 20 07/29/17 09:01 98.7 07/29/17 09:00 20 07/29/17 08:32 98.7 I&O: Intake and Output 07/29/17 07/30/17 19:00 07:00 Intake Total 1155 ml 1225 ml Output Total 710 ml 2200 ml Balance 445 ml -975 ml Intake IV Total 1155 ml 1225 ml Output Urine Total 700 ml 2200 ml Drainage Total 10 ml Drains: none Neuro Status: stable Assessment Post-op Diagnosis: same + durotomy x 2 l45, and HNP with extrusion L l34 Procedure Performed: Anterior/posterior fusion L45S1 and L3-S1 decompression, L34 L Discectomy, and L45 dural repair Plan Plan: PT - in am after sitting protocol, pain management, d/c drain - tomorrow after sitting protocol GEORGINA LAFLEUR July 30, 2017 08:33
[2017-07-30] MEDS: Docusate 100mg cap ORAL SCH ×2 (08:52→17:48)
[2017-07-30] MEDS: Lisinopril 20mg tab ORAL SCH (08:52)
[2017-07-30] MEDS: acetaZOLAMIDE 500mg Inj IVP SCH (08:52)
[2017-07-30] MEDS ORDERED: Rate Change PCA 1 Each MISC PRN ×2 (09:30)
[2017-07-30] MEDS ORDERED: PCA Morphine 1mg/ml 30 ML IV PRN (09:30)
[2017-07-30 12:00] VITALS: BP 111/56
--- NOTE | 2017-07-30 12:03 | Pulmonology Progress Note ---
Assessment/Plan Problems: (1) HTN (hypertension) (2) Spinal stenosis of lumbar region Assessment/Plan no new complains BP controlled pt/ot f/u by pain management decrease IV fluids check electrolytes in am Subjective ROS Limited/Unobtainable: No Constitutional: Reports: no symptoms Respiratory: Reports: no symptoms Allergies: Coded Allergies: HYDROCODONE (Verified Adverse Reaction, Intermediate, NAUSEA, 07/29/17) PT GETS NAUSEA FROM HYDROCODONE (DR. Issac JOHNSON WANTS THIS RECORDED AN ADR) PT IS OKAY WITH TAKING OXYCODONE Objective Last 24 Hour Vital Signs Date Time Temp Pulse Resp B/P (MAP) Pulse Ox O2 Delivery O2 Flow Rate FiO2 07/30/17 08:52 109/50 07/30/17 08:00 18 07/30/17 08:00 98.6 93 19 109/50 99 98.6 07/30/17 04:00 18 07/30/17 04:00 97.7 100 18 126/63 100 Nasal Cannula 3.0 97.7 07/30/17 00:00 19 07/30/17 00:00 19 07/30/17 00:00 98.6 99 18 123/59 100 Nasal Cannula 3.0 98.6 07/29/17 20:00 98.6 88 18 137/58 99 Nasal Cannula 3.0 98.6 07/29/17 20:00 18 07/29/17 16:00 20 07/29/17 16:00 98.8 91 20 124/70 91 Room Air 98.8 07/29/17 15:06 98.0 07/29/17 14:07 98.0 07/29/17 12:00 98.0 88 20 108/56 100 Room Air 98.0 07/29/17 12:00 20 Intake and Output 07/29/17 07/30/17 19:00 07:00 Intake Total 1155 ml 1225 ml Output Total 710 ml 2200 ml Balance 445 ml -975 ml Intake IV Total 1155 ml 1225 ml Output Urine Total 700 ml 2200 ml Drainage Total 10 ml General Appearance: WD/WN HEENT: atraumatic, anicteric Respiratory/Chest: chest wall non-tender, lungs clear Cardiovascular: normal peripheral pulses, normal rate Abdomen: normal bowel sounds, soft, non tender, no scars Extremities: no clubbing Skin: no ulcers Microbiology Date/Time Source Procedure Growth Status 07/28/17 06:50 Nasal Nares MRSA Culture - Final NO METHICILLIN RESISTANT STAPH AUREUS... Complete Current Medications Medications (Trade) Dose Ordered Sig/Jessica Route PRN Reason Start Time Stop Time Status Last Admin Dose Admin Acetaminophen (Tylenol) 650 mg Q4H PRN ORAL headache or temp>101 07/28/17 21:00 08/27/17 20:59 07/29/17 07:33 Acetaminophen/ Butalbital/ Caffeine (Fioricet) 1 tab Q8H PRN ORAL for headache 07/29/17 09:45 08/28/17 09:44 07/29/17 14:07 Acetazolamide (Diamox 500mg Inj) 500 mg DAILY IVP 07/29/17 09:00 07/30/17 16:59 07/30/17 08:52 Al Hydroxide/Mg Hydroxide (Mylanta) 30 ml Q6H PRN ORAL gerd 07/29/17 14:00 08/28/17 13:59 Atorvastatin Calcium (Lipitor) 20 mg BEDTIME ORAL 07/29/17 21:00 08/28/17 20:59 07/29/17 20:57 Dextrose/Sodium Chloride 1,000 ml @ 150 mls/hr Q6H40M IV 07/30/17 06:30 08/27/17 06:29 07/30/17 11:13 Diphenhydramine HCl (Benadryl) 25 mg Q6H PRN ORAL Itching 07/30/17 14:00 08/29/17 13:59 Docusate Sodium (Colace) 100 mg TWICE A DAY ORAL 07/28/17 22:00 08/27/17 21:59 07/30/17 08:52 Lisinopril (Prinivil) 20 mg DAILY ORAL 07/30/17 09:00 08/29/17 08:59 07/30/17 08:52 Lorazepam (Ativan) 0.5 mg QHS ORAL 07/30/17 21:00 08/06/17 20:59 Magnesium Hydroxide (Mom) 30 ml QIDPRN PRN ORAL Constipation 07/28/17 21:00 08/27/17 20:59 Miscellaneous Medication (DEBT AND BUDGET COUNSELOR Rate Change) 1 ea PRN MISC rate change 07/30/17 09:30 08/01/17 09:29 Miscellaneous Medication (DEBT AND BUDGET COUNSELOR shift volume) 1 ea Q12HR@0700,1900 MISC 07/30/17 19:00 08/01/17 18:59 Morphine Sulfate 30 ml @ 0 mls/hr DEBT AND BUDGET COUNSELOR Protocol PRN IV For Pain 07/30/17 09:30 08/01/17 09:29 Morphine Sulfate (Morphine Sulfate) 4 mg Q3H PRN IM Severe Breakthru Pain (>7) 07/29/17 14:00 08/05/17 13:59 07/30/17 05:32 Naloxone HCl (Narcan) 0.1 mg PRN PRN IVP RR<12/min, pt unarousable 07/28/17 21:00 08/01/17 09:30 Ondansetron HCl (Zofran) 4 mg Q4H PRN IVP Nausea & Vomiting 07/29/17 14:00 08/28/17 13:59 07/30/17 04:28 Oxycodone HCl (Roxicodone) 15 mg Q3H PRN ORAL Moderate Breakthru Pain (5-7) 07/30/17 09:15 08/06/17 09:14 Pantoprazole (Protonix) 40 mg BEDTIME ORAL 07/29/17 21:00 08/28/17 20:59 07/29/17 20:57 Phenol/Menthol (Chloraseptic) 1 spray Q3H PRN ORAL sore throat 07/29/17 15:00 08/28/17 14:59 Promethazine HCl (Phenergan) 12.5 mg Q8HR PRN IM Nausea & Vomiting 07/29/17 14:00 08/28/17 13:59 07/29/17 14:30 Mariah Julio MD July 30, 2017 12:03
--- NOTE | 2017-07-30 12:15 | Progress Note ---
DATE: 07/30/2017 ACUTE PAIN MANAGEMENT PHYSICIAN PROGRESS NOTE MEDICATIONS: Medication administration record reviewed. Medications include IV fluids, Colace, Lipitor, Protonix, Diamox, Prinivil, PATTERNATOR morphine q.12 hours, and Ativan. P.r.n. medications include Narcan, Tylenol, milk of magnesia, Fioricet, Zofran, Phenergan, Mylanta, Benadryl, IM morphine, Chloraseptic, and oxycodone. LABORATORY STUDIES: From yesterday, July 29, 2017, shows white count of 15, hematocrit 36, and platelets 260. OBJECTIVE: VITAL SIGNS: Within normal limits. Afebrile, pulse 100, respirations 18, blood pressure 126/63, and oxygen saturation 100% on supplemental oxygen. I saw the patient at the bedside. I discussed the case with the surgeon, Dr. Castillo. The patient remains on flat bed rest. His headaches have resolved. Yesterday, he had significant pressure behind the orbits. This has resolved. He remains on Diamox per the surgeon. I did start the patient on q.12 hours dosing of Ativan, which also has seem to relax the patient somewhat. There shows no over sedation. The patient was trialed on multiple doses of the oral oxycodone 10 mg. This has been well tolerated without any over sedation. The patient expect he could tolerate a higher dose, so I have increased the oxycodone instant release to 15 mg p.r.n. the patient's did drop off the prescription, which I provided for Percocet for outpatient usage at the local outpatient pharmacy. After the ALIF procedure, the patient thinks he just began starting passing positive flatus. I will start him on clear liquids with coffee for lunch time. I increased the IV fluid rate to 150 mL an hour earlier, and I believe this increased IV fluid rate has helped his relative intravascular dehydration symptoms. The patient is moving all extremities x4. He does log roll from time to time with the nursing staff. Yesterday, Dr. Castillo removed the lumbar spine drain since there was minimal output. The patient does have itching complaints. We will trial him on Benadryl. I will switch the oral Ativan to at bedtime. Incentive spirometer remains at the bedside. The patient does have sequential compression pneumatic devices for DVT prophylaxis. Agus Martino M.D. DR: BAR JOB#: [id number] CC:
[2017-07-30] MEDS: PCA Morphine 1mg/ml 30 ML IV PRN (13:15)
[2017-07-30 16:00] VITALS: BP 90/45
[2017-07-30] MEDS ORDERED: PCA shift volume MISC SCH (19:00)
[2017-07-30 20:00] VITALS: BP 107/58
[2017-07-30] MEDS ORDERED: LORazepam 0.5mg tab ORAL SCH (21:00)
[2017-07-30] MEDS: Atorvastatin 20mg tab ORAL SCH (21:16)
[2017-07-31] VITALS: BP 94/55
[2017-07-31] MEDS: PCA Morphine 1mg/ml 30 ML IV PRN (00:31)
[2017-07-31 04:00] VITALS: BP 103/56
[2017-07-31] MEDS ORDERED: Naloxone 0.4mg/ml Inj IVP PRN (06:15)
[2017-07-31] MEDS: oxyCODONE 15mg IR tab ORAL PRN ×2 (06:25→20:18)
[2017-07-31] MEDS ORDERED: PCA shift volume MISC SCH (07:00)
--- NOTE | 2017-07-31 07:00 | Progress Note ---
DATE: 07/31/2017 NOTE: INCOMPLETE DICTATION ACUTE PAIN MANAGEMENT PHYSICIAN PROGRESS NOTE MEDICATIONS: Medication administration record reviewed. Medications include IV fluids, Colace, Lipitor, Protonix, Prinivil, morphine QUOTATION CHECKER at bedtime, and Ativan. P.r.n. medications include Narcan, Tylenol, milk of magnesia, Fioricet, Zofran, Phenergan, Mylanta, morphine intramuscular, Chloraseptic, Roxicodone, and Benadryl. LABORATORY STUDIES: From July 29, 2017, shows white count of 15, hematocrit 36, and platelets 260. OBJECTIVE: CURRENT VITAL SIGNS: Afebrile, pulse 102, respirations 19, blood pressure 103/56, and oxygen saturation 97% on room air. I saw the patient at the bedside. I discussed the case with the surgeon, Dr. Castillo and the nurse RN, Joshua. The patient is happy. He is passing positive flatus. Agus Martino M.D. DR: BAR JOB#: [id number] CC:
[2017-07-31 07:18] LABS: BASOPHILS % (AUTO) 0.6 % (0.0-2.0); EOSINOPHILS % (AUTO) 1.4 % (0.0-3.0); HEMATOCRIT 31.4 % (42.0-52.0); HEMOGLOBIN 10.4 G/DL (14.2-18.0); LYMPHOCYTES % (AUTO) 19.2 % (20.0-45.0); MEAN CORPUSCULAR VOLUME 85 FL (80-99); MONOCYTES % (AUTO) 11.7 % (1.0-10.0); NEUTROPHILS % (AUTO) 67.1 % (45.0-75.0); PLATELET COUNT 250 K/UL (150-450); RED BLOOD COUNT 3.69 M/UL (4.70-6.10); RED CELL DISTRIBUTION WIDTH 12.2 % (11.6-14.8); WHITE BLOOD COUNT 13.9 K/UL (4.8-10.8)
[2017-07-31 07:37] LABS: ALANINE AMINOTRANSFERASE 34 U/L (12-78); ALBUMIN 2.8 G/DL (3.4-5.0); ALBUMIN/GLOBULIN RATIO 0.6 (1.0-2.7); ALKALINE PHOSPHATASE 63 U/L (46-116); ANION GAP 8 mmol/L (5-15); ASPARTATE AMINO TRANSFERASE 49 U/L (15-37); BILIRUBIN,TOTAL 0.6 MG/DL (0.2-1.0); BLOOD UREA NITROGEN 10 mg/dL (7-18); CALCIUM 9.7 MG/DL (8.5-10.1); CARBON DIOXIDE 23 MMOL/L (21-32); CHLORIDE 104 MMOL/L (98-107); CREATININE 1.2 MG/DL (0.55-1.30); PHOSPHORUS 2.6 MG/DL (2.5-4.9); POTASSIUM 3.9 MMOL/L (3.5-5.1); SODIUM 135 MMOL/L (136-145)
[2017-07-31 08:00] VITALS: BP 125/69
[2017-07-31] MEDS: Lisinopril 20mg tab ORAL SCH (09:12)
[2017-07-31] MEDS: Docusate 100mg cap ORAL SCH ×3 (09:12→17:27)
[2017-07-31 11:49] VITALS: BP 127/52
--- NOTE | 2017-07-31 14:38 | Pulmonology Progress Note ---
Assessment/Plan Problems: (1) HTN (hypertension) (2) Spinal stenosis of lumbar region Assessment/Plan continue pt no new complains BP controlled pt/ot f/u by pain management decrease IV fluids dc planning soon Subjective ROS Limited/Unobtainable: No Interval Events: not walking yet Allergies: Coded Allergies: HYDROCODONE (Verified Adverse Reaction, Intermediate, NAUSEA, 07/29/17) PT GETS NAUSEA FROM HYDROCODONE (DR. Issac JOHNSON WANTS THIS RECORDED AN ADR) PT IS OKAY WITH TAKING OXYCODONE Objective Last 24 Hour Vital Signs Date Time Temp Pulse Resp B/P (MAP) Pulse Ox O2 Delivery O2 Flow Rate FiO2 07/31/17 12:00 18 07/31/17 11:49 97.0 98 20 127/52 100 Room Air 97.0 07/31/17 09:12 125/69 07/31/17 08:00 18 07/31/17 08:00 98.8 98 19 125/69 97 Room Air 98.8 07/31/17 04:00 18 07/31/17 04:00 99.1 102 19 103/56 97 Room Air 99.1 07/31/17 00:00 98.8 102 17 94/55 97 Room Air 98.8 07/31/17 00:00 18 07/30/17 21:01 Nasal Cannula 2.0 28 07/30/17 21:00 97 Nasal Cannula 2.0 28 07/30/17 20:00 98.5 106 18 107/58 97 Room Air 98.5 07/30/17 20:00 18 07/30/17 16:00 18 07/30/17 16:00 98.4 105 19 90/45 98 98.4 Intake and Output 07/30/17 07/31/17 19:00 07:00 Intake Total 1850 ml 220 ml Output Total 500 ml 1375 ml Balance 1350 ml -1155 ml Intake Oral 500 ml 220 ml IV Total 1350 ml Output Urine Total 500 ml 1375 ml General Appearance: WD/WN HEENT: normocephalic, atraumatic Respiratory/Chest: chest wall non-tender, lungs clear Cardiovascular: normal peripheral pulses, normal rate Abdomen: normal bowel sounds, soft, non tender Genitourinary: normal external genitalia Extremities: no cyanosis Skin: no rash, no lesions Neurologic/Psychiatric: normal mood/affect Laboratory Tests 07/31/17 06:00: White Blood Count 13.9H, Red Blood Count 3.69L, Hemoglobin 10.4L, Hematocrit 31.4L, Mean Corpuscular Volume 85, Mean Corpuscular Hemoglobin 28.1, Mean Corpuscular Hemoglobin Concent 33.0, Red Cell Distribution Width 12.2, Platelet Count 250, Mean Platelet Volume 7.6, Neutrophils (%) (Auto) 67.1, Lymphocytes (% ) (Auto) 19.2L, Monocytes (%) (Auto) 11.7H, Eosinophils (%) (Auto) 1.4, Basophils (%) (Auto) 0.6, Sodium Level 135L, Potassium Level 3.9, Chloride Level 104, Carbon Dioxide Level 23, Anion Gap 8, Blood Urea Nitrogen 10, Creatinine 1.2, Estimat Glomerular Filtration Rate > 60, Glucose Level 120H, Calcium Level 9.7, Phosphorus Level 2.6, Magnesium Level 2.1, Total Bilirubin 0.6, Aspartate Amino Transf (AST/SGOT) 49H, Alanine Aminotransferase (ALT/SGPT) 34, Alkaline Phosphatase 63, Total Protein 7.3, Albumin 2.8L, Globulin 4.5, Albumin/Globulin Ratio 0.6L Current Medications Medications (Trade) Dose Ordered Sig/Jessica Route PRN Reason Start Time Stop Time Status Last Admin Dose Admin Acetaminophen (Tylenol) 650 mg Q4H PRN ORAL headache or temp>101 07/28/17 21:00 08/27/17 20:59 07/29/17 07:33 Acetaminophen/ Butalbital/ Caffeine (Fioricet) 1 tab Q8H PRN ORAL for headache 07/29/17 09:45 08/28/17 09:44 07/29/17 14:07 Al Hydroxide/Mg Hydroxide (Mylanta) 30 ml Q6H PRN ORAL gerd 07/29/17 14:00 08/28/17 13:59 07/31/17 12:29 Atorvastatin Calcium (Lipitor) 20 mg BEDTIME ORAL 07/29/17 21:00 08/28/17 20:59 07/30/17 21:16 Diphenhydramine HCl (Benadryl) 25 mg Q6H PRN ORAL Itching 07/30/17 14:00 08/29/17 13:59 07/30/17 16:11 Docusate Sodium (Colace) 100 mg TWICE A DAY ORAL 07/28/17 22:00 08/27/17 21:59 07/31/17 09:12 Lisinopril (Prinivil) 20 mg DAILY ORAL 07/30/17 09:00 08/29/17 08:59 07/31/17 09:12 Lorazepam (Ativan) 0.5 mg QHS ORAL 07/30/17 21:00 08/06/17 20:59 07/30/17 21:17 Magnesium Hydroxide (Mom) 30 ml QIDPRN PRN ORAL Constipation 07/28/17 21:00 08/27/17 20:59 Miscellaneous Medication (RFID SYSTEMS ENGINEER Rate Change) 1 ea PRN MISC rate change 07/30/17 09:30 08/01/17 09:29 Miscellaneous Medication (RFID SYSTEMS ENGINEER shift volume) 1 ea Q12HR@0700,1900 MISC 07/31/17 07:00 08/02/17 06:59 07/31/17 07:00 Morphine Sulfate 30 ml @ 0 mls/hr RFID SYSTEMS ENGINEER Protocol PRN IV For Pain 07/30/17 09:30 08/01/17 09:29 Morphine Sulfate (Morphine Sulfate) 4 mg Q3H PRN IM Severe Breakthru Pain (>7) 07/29/17 14:00 08/05/17 13:59 07/30/17 05:32 Naloxone HCl (Narcan) 0.1 mg PRN PRN IVP RR<12/min, pt unarousable 07/31/17 06:15 08/03/17 18:45 Ondansetron HCl (Zofran) 4 mg Q4H PRN IVP Nausea & Vomiting 07/29/17 14:00 08/28/17 13:59 07/30/17 04:28 Oxycodone HCl (Roxicodone) 15 mg Q3H PRN ORAL Moderate Breakthru Pain (5-7) 07/30/17 09:15 08/06/17 09:14 07/31/17 06:25 Pantoprazole (Protonix) 40 mg BEDTIME ORAL 07/29/17 21:00 08/28/17 20:59 07/30/17 21:17 Phenol/Menthol (Chloraseptic) 1 spray Q3H PRN ORAL sore throat 07/29/17 15:00 08/28/17 14:59 07/31/17 14:17 Promethazine HCl (Phenergan) 12.5 mg Q8HR PRN IM Nausea & Vomiting 07/29/17 14:00 08/28/17 13:59 07/29/17 14:30 Mariah Julio MD July 31, 2017 14:38
[2017-07-31 16:00] VITALS: BP 144/83
[2017-07-31] MEDS: Morphine Sulfate 4mg/ml Inj IM PRN (17:24)
[2017-07-31] MEDS: Atorvastatin 20mg tab ORAL SCH (20:18)
[2017-07-31] MEDS ORDERED: D5 1/2NS 1000ml IV ONE ×2 (21:00)
--- NOTE | 2017-08-01 02:16 | Progress Note ---
DATE: 07/31/2017 ACUTE PAIN MANAGEMENT PHYSICIAN PROGRESS NOTE ADDENDUM MEDICATIONS: Medication administration record reviewed. Medications include IV fluids, Colace, Lipitor, Protonix, Prinivil, morphine BOOKKEEPERS SUPERVISOR, and Ativan at bedtime . P.r.n. medications include Tylenol, milk of magnesia, Fioricet, Zofran, Phenergan, Mylanta, morphine intramuscular, Chloraseptic, Roxicodone, and Benadryl. LABORATORY STUDIES: From July 29, 2017, shows white count 15, hematocrit 36, and platelets 257. Sodium 140, potassium 4.9, chloride 103, bicarb 30, BUN 10, creatinine 1.0, and glucose 110. OBJECTIVE: VITAL SIGNS: Shows afebrile, pulse 102, respirations 19, blood pressure 103/56, and oxygen saturation 97% on room air. I saw the patient at bedside with the nurse RN, Joshua. I discussed the case with the surgeon, Dr. Castillo. The patient has been doing well. He has been logrolling himself in the bed. He has 5/5 dorsiflexion, 5/5 plantar flexion in bilateral lower extremities. The Merritt catheter remains in place while he remains on bed rest. Today, it will michael 72 hours after dural leak from his lumbar spine fusion surgery. Per the surgeon, Dr. Álvarez, the patient will begin sitting protocol later this morning. The patient has not complained of any headaches over the past 24 hours. If the patient tolerates the sitting protocol, he then will begin ambulating with physical therapy. I will continue the morphine BOOKKEEPERS SUPERVISOR for the current time, until the patient is ambulatory and can tolerate his pain levels just on the oral oxycodone and intramuscular morphine p.r.n. injections. The patient's was able to obtain the Percocet prescription, which I provided several days ago at the outpatient pharmacy for outpatient usage. The patient's nausea symptoms have resolved. The scopolamine patch remains in place. He has been tolerating regular diet, albeit having difficulty eating in the supine position. The patient is passing positive flatus. He denies any chest pain or shortness of breath. We will see how the patient performs with a sitting protocol. Sequential compression pneumatic devices have been encouraged while he remains in bed. Incentive spirometer remains at the bedside though the patient has been compliant with good pulmonary toilet. To avoid any orthostatic hypotension, I will continue the IV fluids at this time. I would TKO the IV fluids as soon as the patient is able to ambulate without any orthostatic dizziness. Hopefully, we can discontinue the BOOKKEEPERS SUPERVISOR in the next 24 hours. Agus Martino M.D. DR: BAR JOB#: [id number] CC:
--- NOTE | 2017-08-03 08:43 | Discharge Summary ---
Discharge Summary Hospital Course Date of Admission July 28, 2017 at 05:48 Date of Discharge July 31, 2017 at 21:01 Admitting Diagnosis back pain, spinal stenosis, history of prior back surgery Reason for Hospitalization: Elective surgery HPI Jose Pinzon is a 56 year old male who was admitted on July 28, 2017 at 05:48 for Spinal Stenosis Patient was admitted for elective surgery. Consultations Dr. Julio- BEE Martino pain specialist Procedures s/p 07/28/[address] Castillo 1. Posterior spinal fusion L4 through S1. 2. Midline central decompression L3, L4, L5, and superior portion of S1. 3. Diskectomy, left side L3-L4. 4. Primary repair of dural tear x2 at L4-L5 both midline dorsally as well as the left side along the lateral recess. 5. Neurodiagnostic monitoring. 6. Use of fluoroscopy. 7. Use of operating microscope. 8. Pedicle screw stimulation. 9. Application of local autograft bone. s/p 07/28/[address] Combs 1. Anterior retroperitoneal exposure, L4-L5. 2. Anterior retroperitoneal exposure, L5-S1 vertebral interspace. 3. Primary repair of left common iliac vein. Hospital Course status post surgery IV fluids initially NPO until bowel function returned Pain management with FORM DESIGNER Pain specialist followed Bedrest for 72 hours Nausea controlled with antiemetics no complaints of the headache neurovascularly intact dressing clean dry and intact Hemovac in place output closely monitored SCD on for DVT prophylaxis Incentive spirometry at the bedside, patient was taught and encouraged to use as directed sitting protocol after 72 hours, tolerated Started to work with physical therapist after tolerating sitting protocol Hemovac was discontinued after tolerating sitting protocol when bowel function returned, started on diet and advanced as tolerated IV fluids taper down and discontinued when patient tolerated regular diet blood pressure was managed with SHERRY inhibitor, closely monitored, and remained stable FORM DESIGNER discontinued , patient was changed to oral analgesics patient was stable for transfer to [facility] for further rehabilitation FINAL DIAGNOSES Spinal stenosis L3 -S1. status post prior anterior fusion L4-L5 and L5-S1. Spondylosis and advanced discopathy at L5-S1 and spondylolisthesis and discopathy at L4-L5. Extruded disk fragment, left side at L3-L4. Intraoperative durotomy x2 at L4-L5. s/p Anterior/posterior fusion L4-5-S1 and L3-S1 decompression, L3-4 L Discectomy , and L4-5 dural repair HTN Discharge Medications Continued Medications: Atorvastatin Calcium* (Lipitor*) 20 Mg Tablet 20 MG ORAL BEDTIME, TAB (This prescription has been renewed) Lisinopril (Lisinopril*) 20 Mg Tablet 20 MG ORAL DAILY, TAB (This prescription has been renewed) Discontinued Medications: Aspirin* (Aspir 81*) 81 Mg Tablet.dr 81 MG ORAL DAILY, TAB Naproxen (Naproxen) 250 Mg Tablet 500 MG PO DA, TAB Discharge Condition Upon Discharge: stable Discharge Disposition Patient was discharged to Acute [facility]hab [facility]Unit(62) Discharge Instructions Discharge Instructions Special Instructions I have been assigned to complete a D/C Summary on this account. I was not involved in the patient management Lesa Zambrano NP August 03, 2017 08:43
== END 2017-07-31 21:01 | disposition short-term general hospital (02) | DRG 453 ==
LOC: SDSOVERFLO 05:48 → 3E 20:43
PROC: 0SG30J1 Fusion of Lumbosacral Joint with Synthetic Substitute, Posterior Approach, Posterior Column, Open Approach (ICD-10-PCS; principal; 2017-07-28 07:30)
PROC: 0SB40ZZ Excision of Lumbosacral Disc, Open Approach (ICD-10-PCS; principal; 2017-07-28 07:30)
PROC: 0SG30A0 Fusion of Lumbosacral Joint with Interbody Fusion Device, Anterior Approach, Anterior Column, Open Approach (ICD-10-PCS; principal; 2017-07-28 07:30)
PROC: 06QD0ZZ Repair Left Common Iliac Vein, Open Approach (ICD-10-PCS; principal; 2017-07-28 07:30)
PROC: 0SG00A0 Fusion of Lumbar Vertebral Joint with Interbody Fusion Device, Anterior Approach, Anterior Column, Open Approach (ICD-10-PCS; principal; 2017-07-28 07:30)
PROC: 0SG00J1 Fusion of Lumbar Vertebral Joint with Synthetic Substitute, Posterior Approach, Posterior Column, Open Approach (ICD-10-PCS; principal; 2017-07-28 07:30)
PROC: 01NB0ZZ Release Lumbar Nerve, Open Approach (ICD-10-PCS; principal; 2017-07-28 07:30)
PROC: 0SB20ZZ Excision of Lumbar Vertebral Disc, Open Approach (ICD-10-PCS; principal; 2017-07-28 07:30)
PROC: 00QT0ZZ Repair Spinal Meninges, Open Approach (ICD-10-PCS; principal; 2017-07-28 07:30)
DX: M51.16 Intervertebral disc disorders with radiculopathy, lumbar region (principal); S35.515A Injury of left iliac vein, initial encounter; G97.41 Accidental puncture or laceration of dura during a procedure; M43.16 Spondylolisthesis, lumbar region; M47.897 Other spondylosis, lumbosacral region; R73.03 Prediabetes; E78.00 Pure hypercholesterolemia, unspecified; M48.061 Spinal stenosis, lumbar region without neurogenic claudication; E66.9 Obesity, unspecified; M48.07 Spinal stenosis, lumbosacral region; Y83.8 Other surgical procedures as the cause of abnormal reaction of the patient, or of later complication, without mention of misadventure at the time of the procedure
CPT/HCPCS: 36415; 71046; 72020; 76001; 80053; 81003; 82962; 83735; 84100; 85025; 85610; 85730; 86850; 86900; 86901; 87081; 87086; 94003; 94150; 94760; J2405; J2710